=== PATIENT | male | born 1980 | race Caucasian/White ===

== ENCOUNTER 2025-07-17 09:25 | Inpatient (IN) | payer OTHER ==
[~2025-07-17] VITALS: Ht 175.3 cm; Wt 92.1 kg
[2025-07-17] MEDS: PANTOPRAZOLE SODIUM 40 MG/VIAL IVP ONE (10:12)
[2025-07-17] MEDS: SODIUM CHLORIDE 0.9% 1,000 ML IV ONE ×2 (10:13→10:18)
[2025-07-17] MEDS ORDERED: LevETIRAcetam 1,000 MG in DEXTROSE 5%-WATER 100 ML IV ONE (10:15)
[2025-07-17 10:23] LABS: PLATELET COUNT (AUTO) 294 K/uL (150-450); RED BLOOD CELL COUNT(AUTO) 5.78 MIL/uL (4.50-5.90); RED CELL DISTRIBUTION WIDTH 14.8 % (11.5-14.5); WHITE BLOOD COUNT (AUTO) 10.0 K/uL (4.5-11.0)
[2025-07-17] MEDS: PANTOPRAZOLE SODIUM 80 MG in SODIUM CHLORIDE 0.9% 100 ML IV SCH ×2 (10:24→17:45)
[2025-07-17] MEDS: LevETIRAcetam 1,000 MG in DEXTROSE 5%-WATER 100 ML IV ONE ×2 (10:24→11:07)
[2025-07-17 10:31] LABS: CALCIUM, TOTAL 9.1 mg/dL (8.8-10.5); CREATININE 1.34 mg/dL (0.60-1.30); GLOMERULAR FILTR. RATE CALC 57 mL/min (>60); GLUCOSE,RANDOM 122 mg/dL (70-110); SODIUM SERUM 133 mmol/L (136-145); UREA NITROGEN, BLOOD 20 mg/dL (7-18)
[2025-07-17 10:37] LABS: ASPARTATE AMINOTRANSFERASE 28 U/L (15-37); TOTAL PROTEIN, SERUM 8.4 g/dL (6.4-8.2)
[2025-07-17 10:41] LABS: LACTIC ACID 1.3 mmol/L (0.4-2.0); TROPONIN I-HIGH SENSITIVITY 7 ng/L (<76)
[2025-07-17 11:09] LABS: ALCOHOL, BLOOD (SERUM) < 3 mg/dL (0-10)
[2025-07-17 13:30] VITALS: BP 99/58; PULSE 86; RESP 18; TEMP 98.1; O2SAT 99
[2025-07-17] MEDS ORDERED: LEVE250T81 PO (15:35)
[2025-07-17] MEDS ORDERED: LISI-659 PO (15:35)
[2025-07-17] MEDS ORDERED: AMLO-257 PO (15:35)
[2025-07-17] MEDS ORDERED: PANT-31 PO (15:35)
[2025-07-17] MEDS ORDERED: ALBUTEROL SULFATE 2.5 MG/0.5 ML NEB SOLUTION NEB PRN (15:45)
[2025-07-17] MEDS ORDERED: ZOLPIDEM TARTRATE 5 MG TABLET PO PRN (15:45)
[2025-07-17] MEDS ORDERED: IPRATROPIUM BROMIDE 0.5 MG/2.5 ML NEB SOLUTION NEB PRN (15:45)
[2025-07-17] MEDS ORDERED: BISACODYL 10 MG RECTAL RECTAL SUPPOSITORY PR PRN (15:45)
[2025-07-17] MEDS ORDERED: MAGNESIUM HYDROXIDE SUSPENSION 30 ML UDCUP PO PRN (15:45)
[2025-07-17] MEDS ORDERED: ONDANSETRON HCL 4 MG/2 ML VIAL IVP PRN (15:45)
[2025-07-17 16:00] VITALS: BP 101/66; PULSE 72; RESP 16; TEMP 98.1; O2SAT 97
[2025-07-17] MEDS: SODIUM CHLORIDE 0.9% 1,000 ML IV SCH (17:45)
[2025-07-17 18:54] LABS: TROPONIN I-HIGH SENSITIVITY 9 ng/L (<76)
[2025-07-17 20:00] VITALS: BP 110/75; PULSE 74; RESP 16; TEMP 98; O2SAT 100
[2025-07-17 21:53] LABS: TROPONIN I-HIGH SENSITIVITY 9 ng/L (<76)
[2025-07-18 00:26] VITALS: BP 121/68; PULSE 75; RESP 18; TEMP 98.4; O2SAT 98
[2025-07-18 04:00] VITALS: BP 101/61; PULSE 68; RESP 19; TEMP 98.2; O2SAT 97
[2025-07-18 04:32] LABS: TROPONIN I-HIGH SENSITIVITY 8 ng/L (<76)
[2025-07-18 08:00] VITALS: BP 106/62; PULSE 88; RESP 18; TEMP 98.3; O2SAT 99
[2025-07-18 10:24] LABS: TROPONIN I-HIGH SENSITIVITY 5 ng/L (<76)
[2025-07-18 12:00] VITALS: BP 110/68; PULSE 82; RESP 18; TEMP 98; O2SAT 97
[2025-07-18 16:00] VITALS: BP 116/78; PULSE 70; RESP 16; TEMP 98.2; O2SAT 98
[2025-07-18 16:36] LABS: TROPONIN I-HIGH SENSITIVITY 7 ng/L (<76)
[2025-07-18 20:00] VITALS: BP 118/72; PULSE 63; RESP 16; TEMP 98.4; O2SAT 96
[2025-07-18 22:18] LABS: TROPONIN I-HIGH SENSITIVITY 5 ng/L (<76)
[2025-07-19] VITALS (7 sets, daily range): BP systolic 102–126; BP diastolic 66–78; PULSE 75–115; RESP 17–19; TEMP 98.2–100.6; O2SAT 96–98
[2025-07-19 06:19] LABS: PLATELET COUNT (AUTO) 226 K/uL (150-450); RED BLOOD CELL COUNT(AUTO) 4.43 MIL/uL (4.50-5.90); RED CELL DISTRIBUTION WIDTH 14.2 % (11.5-14.5); WHITE BLOOD COUNT (AUTO) 7.4 K/uL (4.5-11.0)
[2025-07-19 06:40] LABS: CALCIUM, TOTAL 8.1 mg/dL (8.8-10.5); CREATININE 1.23 mg/dL (0.60-1.30); GLOMERULAR FILTR. RATE CALC > 60 mL/min (>60); GLUCOSE,RANDOM 112 mg/dL (70-110); SODIUM SERUM 140 mmol/L (136-145); UREA NITROGEN, BLOOD 16 mg/dL (7-18)
[2025-07-19] MEDS: BENZOCAINE/MENTHOL [CEPACOL] LOZENGE PO PRN (11:52)
[2025-07-19] MEDS ORDERED: PROPOFOL 1% 20 ML VIAL IVP ONE (12:00)
[2025-07-19] MEDS ORDERED: LIDOCAINE/PF 2% 5 ML VIAL ONE (12:00)
[2025-07-19 13:23] LABS: INFLUENZA A-RTPCR,COMBO NEGATIVE (NEGATIVE); INFLUENZA B-RTPCR,COMBO NEGATIVE (NEGATIVE); RESPIRATORY SYNCYTIAL VRS-PCR NEGATIVE (NEGATIVE); SARS COVID19 RTPCR, COMBO NEGATIVE (NEGATIVE)
[2025-07-19] MEDS ORDERED: SODIUM CHLORIDE 0.9% 1,000 ML ONE (13:33)
[2025-07-19] MEDS ORDERED: MEPERIDINE-PF 25 MG/ML VIAL IVP PRN (14:30)
[2025-07-19] MEDS ORDERED: FentaNYL CITRATE PF 100 MCG/2 ML VIAL IVP PRN (14:30)
[2025-07-19] MEDS: GuaiFENesin [SUGAR-FREE] 200 MG/10 ML SOLUTION UDCUP PO PRN (20:03)
[2025-07-19] MEDS: OXYGEN THERAPY IH SCH (20:03)
[2025-07-19] MEDS: ACETAMINOPHEN 325 MG TABLET PO PRN (20:03)
[2025-07-20 05:19] VITALS: BP 107/61; PULSE 75; RESP 18; TEMP 98.4; O2SAT 98
[2025-07-20 08:00] VITALS: BP 101/66; PULSE 76; RESP 16; TEMP 98.1; O2SAT 99
[2025-07-20] MEDS: PANTOPRAZOLE SODIUM 40 MG/VIAL IVP SCH (08:18)
[2025-07-20 11:42] VITALS: BP 108/71; RESP 17; TEMP 97.7; O2SAT 98
[2025-07-20 15:58] VITALS: BP 99/74; PULSE 65; RESP 18; TEMP 98; O2SAT 97
[2025-07-20 20:12] VITALS: BP 107/78; PULSE 72; RESP 18; TEMP 98.8; O2SAT 100
[2025-07-21 00:15] VITALS: BP 130/77; PULSE 72; RESP 18; TEMP 98.4; O2SAT 99
[2025-07-21 05:10] VITALS: BP 104/71; PULSE 65; RESP 17; TEMP 97.9; O2SAT 98
[2025-07-21 08:00] VITALS: BP 121/84; PULSE 75; RESP 20; TEMP 97.3; O2SAT 100
[2025-07-21] MEDS: RINGERS SOLUTION,LACTATED 1,000 ML IV ONE (15:50)
[2025-07-21 16:00] VITALS: BP 118/88; PULSE 73; RESP 20; TEMP 98.2; O2SAT 100
[2025-07-21] MEDS ORDERED: SODIUM CHLORIDE 0.9% 500 ML IV ONE (17:24)
[2025-07-21] MEDS: CefTRIAXone SODIUM 2 GM in DEXTROSE 5%-WATER 50 ML IV SCH (17:28)
[2025-07-21] MEDS: ACETAMINOPHEN 500 MG TABLET PO SCH (17:29)
[2025-07-21 20:16] VITALS: BP 104/72; PULSE 75; RESP 20; TEMP 98.1; O2SAT 97
[2025-07-22 05:15] VITALS: BP 109/73; PULSE 65; RESP 18; TEMP 97.3; O2SAT 98
[2025-07-22 07:05] LABS: PLATELET COUNT (AUTO)-OB 232 K/uL (150-450); RED BLOOD CELL COUNT(AUTO) 5.04 MIL/uL (4.50-5.90); RED CELL DISTRIBUTION WIDTH 14.9 % (11.5-14.5); WHITE BLOOD COUNT (AUTO) 5.3 K/uL (4.5-11.0)
[2025-07-22 07:10] LABS: CALCIUM, TOTAL 8.3 mg/dL (8.8-10.5); CREATININE 0.98 mg/dL (0.60-1.30); GLOMERULAR FILTR. RATE CALC > 60 mL/min (>60); GLUCOSE,RANDOM 87 mg/dL (70-110); SODIUM SERUM 142 mmol/L (136-145); UREA NITROGEN, BLOOD 15 mg/dL (7-18)
[2025-07-22 08:00] VITALS: BP 113/75; PULSE 61; RESP 19; TEMP 97.5; O2SAT 100
[2025-07-22] MEDS ORDERED: CEFD300C18 PO ×2 (15:33→16:06)
[2025-07-22 16:00] VITALS: BP 107/72; PULSE 63; RESP 20; TEMP 98.8; O2SAT 100
[2025-07-22 19:20] VITALS: BP 102/65; PULSE 78; RESP 20; TEMP 98.2; O2SAT 100
[2025-07-23 04:16] VITALS: BP 103/70; PULSE 60; RESP 20; TEMP 98.3; O2SAT 97
[2025-07-23 08:00] VITALS: BP 127/86; PULSE 60; RESP 20; TEMP 97.9; O2SAT 98
== END 2025-07-23 16:07 | DRG 377 ==
LOC: EMS 09:25 → EDH 11:14 → 5N 13:10 → 4S 07-21 00:50
PROVIDERS: ADMIT Hospitalist; ATTEND Hospitalist
PROC: 0DJ08ZZ Inspection of Upper Intestinal Tract, Via Natural or Artificial Opening Endoscopic (ICD-10-PCS; principal; 2025-07-19 14:50)
DX: K29.71 Gastritis, unspecified, with bleeding (principal); J18.9 Pneumonia, unspecified organism; E87.1 Hypo-osmolality and hyponatremia; N28.9 Disorder of kidney and ureter, unspecified; Z20.822 Contact with and (suspected) exposure to COVID-19; K44.9 Diaphragmatic hernia without obstruction or gangrene; F17.200 Nicotine dependence, unspecified, uncomplicated; K21.9 Gastro-esophageal reflux disease without esophagitis; F11.90 Opioid use, unspecified, uncomplicated; R56.9 Unspecified convulsions; K20.90 Esophagitis, unspecified without bleeding; Z87.11 Personal history of peptic ulcer disease; Z88.2 Allergy status to sulfonamides; Z88.3 Allergy status to other anti-infective agents
CPT/HCPCS: 71045; 71046; 74176; 76700; 80048; 80076; 82271; 83605; 83690; 83735; 84484; 85014; 85018; 85025; 85610; 86850; 86900; 86901; 87338; 87637; 93005; 96365; 96368; 96375; 99285; G0378; G0480; J0696; J0712; J2470; J2704; J3490; J7030; J7040; J7050; J7060; J7120; 36415-L1; 36415-TC